=== PATIENT | male | born 1945 | race Caucasian/White ===

== ENCOUNTER 2018-06-27 07:29 | Day surgery (SDC) | payer MEDICARE, OTHER ==
[2018-06-21 14:51] LABS: BASOPHILS % (AUTO) 0.9 % (0.0-5.0); EOSINOPHILS % (AUTO) 1.5 % (0.0-8.0); HEMATOCRIT 48.8 % (42-54); LYMPHOCYTES % (AUTO) 20.5 % (21.0-51.0); MEAN CORPUSCULAR HEMOGLOBIN 31.6 pg (27.0-33.0); MEAN CORPUSCULAR HGB CONC 33.6 g/dL (32.0-36.0); MEAN CORPUSCULAR VOLUME 94.3 fL (79-99); MONOCYTES % (AUTO) 9.1 % (3.0-13.0); PLATELET COUNT (AUTO) 235 K/uL (130-400); RED BLOOD CELL COUNT(AUTO) 5.18 MIL/uL (4.50-6.20); RED CELL DISTRIBUTION WIDTH 14.6 % (11.0-15.5)
[2018-06-21 14:56] VITALS: BP 142/84
[2018-06-21 14:58] LABS: APPEARANCE,URINE Clear (CLEAR); BILIRUBIN,URINE Negative (NEGATIVE); COLOR,URINE Yellow (YELLOW); GLUCOSE, URINE (UA) Negative (NEGATIVE); KETONES,URINE Negative (NEGATIVE); LEUKOCYTE ESTERASE ,URINE Negative (NEGATIVE); NITRATE,URINE Negative (NEGATIVE); OCCULT BLOOD,URINE Negative (NEGATIVE); PROTEIN,URINE Negative (NEGATIVE)
[2018-06-21 14:59] LABS: POTASSIUM 4.4 mmol/L (3.5-5.1)
--- NOTE | 2018-06-21 15:00 | NUR ---
ABNORMAL EKG REPORTED ABNORMAL EKG TO DR. VIVAS, ANESTHESIA. NO NEW ORDERS GIVEN. MAY PROCEED WITH PROCEDURE.
[~2018-06-27] VITALS: Ht 185.4 cm; Wt 104.1 kg
[2018-06-27] VITALS (14 sets, daily range): BP systolic 106–137; BP diastolic 63–85
[2018-06-27] MEDS: CEFAZOLIN SODIUM 1 GM VIAL IVP SCH ×2 (06:00→08:55)
[~2018-06-27 07:29] MED LIST: ALLO300T2 PO; HYDR-2132 PO; LISI-613 PO; RIVA10TA PO
[2018-06-27] MEDS ORDERED: LIDOCAINE PF 2% 5ML ABBOJECT ONE (07:39)
[2018-06-27] MEDS ORDERED: NEOSTIGMINE 5MG/5ML SYR IV ONE (07:39)
[2018-06-27] MEDS ORDERED: ROCURONIUM 10MG/1ML SYR 10 MG/ML ML ONE (07:39)
[2018-06-27] MEDS ORDERED: ONDANSETRON HCL 4 MG/2 ML VIAL ONE (07:39)
[2018-06-27] MEDS ORDERED: LIDOCAINE HCL 4% LTA SOL 4 ML VIAL ONE (07:39)
[2018-06-27] MEDS ORDERED: GLYCOPYRROLATE 1 MG/5 ML SYRINGE ONE (07:39)
[2018-06-27] MEDS ORDERED: PROPOFOL 10 MG/ML 20ML VIAL IV ONE (07:39)
[2018-06-27] MEDS ORDERED: DEXAMETHASONE SOD PHOSPHATE 10MG/ML 1ML VIAL ONE (07:39)
[2018-06-27] MEDS ORDERED: FENTANYL CITRATE PF 50 MCG/1 ML 2ML VIAL ONE (07:40)
[2018-06-27] MEDS ORDERED: SUCCINYLCHOLINE 200MG/10ML SYR ONE (07:42)
[2018-06-27] MEDS ORDERED: LACTATED RINGERS 1000ML 1,000 ML IV ONE (07:49)
[2018-06-27] MEDS ORDERED: HYDROMORPHONE 1 MG/1 ML AMP ONE (08:03)
[2018-06-27] MEDS ORDERED: MIRA25TA PO (08:20)
[2018-06-27] MEDS ORDERED: ASPI-1197 PO (08:21)
[2018-06-27] MEDS ORDERED: BUPIVACAINE/PF 0.25% 30ML VIAL IJ ONE (09:11)
[2018-06-27] MEDS ORDERED: KETOROLAC TROMETHAMINE 15MG/ML ONE (10:08)
[2018-06-27] MEDS ORDERED: MEPERIDINE-PF 25 MG/ML SYG ONE (10:09)
== END 2018-06-27 11:55 | disposition home or self-care (01) ==
LOC: DAH 07:29
PROVIDERS: ATTEND Surgery
DX: K43.2 Incisional hernia without obstruction or gangrene (principal); I10 Essential (primary) hypertension; M10.9 Gout, unspecified; Z98.890 Other specified postprocedural states; Z98.49 Cataract extraction status, unspecified eye
CPT/HCPCS: 36415; 49560; 49568; 80048; 81003; 85025; 93005; A4218; A4452; A4606; A4930; C1781; J0330; J0690; J1100; J1170; J1885; J2001; J2175; J2405; J2704; J2710; J3010; J3490 ×2; J7120 ×2

== ENCOUNTER → 2024-03-28 | Outpatient (CLI) | payer MEDICARE ==
[~2024-03-28] MED LIST changes: +ASPI-1197 PO; -HYDR-2132 PO; -LISI-613 PO; +LISI20TA24 PO; +MIRA25TA PO; -RIVA10TA PO
== END | disposition home or self-care (01) ==
LOC: RAH 10:41
PROVIDERS: ATTEND Family Medicine
DX: E04.1 Nontoxic single thyroid nodule (principal)
CPT/HCPCS: 76536

== ENCOUNTER → 2024-09-08 | Outpatient (CLI) | payer MEDICARE ==
--- NOTE | 2024-09-08 09:55 | HMCIMG ---
Exam Type: HIP UNILAT 2-3VW RIGHT Clinical Information: RIGHT HIP PAIN Comparison: None Findings: The bone examination is unremarkable. No fractures or dislocations are seen. No radiopaque foreign bodies are noted. Soft tissues are preserved. IMPRESSION: Normal examination.
--- NOTE | 2024-09-08 10:15 | HMCIMG ---
Exam Type: LUMBAR W FLEXION/EXTENSION Clinical Information: LUMBAR RADICULOPATHY Comparison: None Findings: Exam of the lumbosacral spine demonstrates no evidence of fracture or subluxation. There are mild spondylitic changes. The facet joints show minimal degenerative changes. The alignment of the spine is normal. The disc spaces are intact. Bone mineralization is normal. Lateral flexion and extension views demonstrate no abnormal motion. 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
== END | disposition home or self-care (01) ==
LOC: RAH 08:17
PROVIDERS: ATTEND Neurological Surgery
DX: M47.26 Other spondylosis with radiculopathy, lumbar region (principal); M25.551 Pain in right hip
CPT/HCPCS: 72114; 73502

== ENCOUNTER → 2025-05-07 | Outpatient (CLI) | payer MEDICARE ==
--- NOTE | 2025-05-08 05:55 | HMCIMG ---
EXAM: CR Pelvis and Right Hip, 3 views. CLINICAL HISTORY: Pain. COMPARISON: None provided. 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 No acute fracture or aggressive appearing osseous lesion. Joint spaces are within normal limits. The soft tissues are unremarkable. IMPRESSION: 1. No acute osseous abnormality. /[place]
== END | disposition home or self-care (01) ==
LOC: RAH 14:41
PROVIDERS: ATTEND Family Medicine
DX: M25.551 Pain in right hip (principal); Z96.642 Presence of left artificial hip joint
CPT/HCPCS: 73502